=== PATIENT | female | born 1960 | race Caucasian/White ===

== ENCOUNTER → 2016-08-16 | Outpatient (CLI) | payer OTHER ==
--- NOTE | ~2016-08-16 | SLE ---
[facility] [address] [place] [address] POLYSOMNOGRAPHY STUDY Name: HERIBERTO RAMEY Room #: REG [facility].#: [id number] Admission: 08/16/16 Attend Phys: Naun Thrasher MD Discharge: Date of : 60 Report #: [id number] THIS REPORT FOR: //name// CC: [facility] physician/PCP Naun Thrasher MD HISTORY: A 56-year-old. Height 5 feet 4, weight 225 pounds. Usually goes to bed between 12 and 1 a.m., gets out of bed at 5:30-6:00 a.m. Positive history of snoring and daytime somnolence. No significant arrhythmia noted. BASELINE PORTION: Total sleep time 127 minutes. Sleep efficiency 88%. RESPIRATORY SUMMARY: Central apnea 0, mixed apnea 0, obstructive apnea 1, hypopnea 126. Apnea-hypopnea index of 60 events per sleep hour. Non-REM 57, REM AHI 67 events per sleep hour. Supine AHI 70, left lateral 49 events per sleep hour. Periodic limb movement with arousal index 5.7 events per sleep hour. Low oxygen saturation 86%, spending 1% of recording time less than 90%. CPAP TITRATION: Titrated at 5, 6, 7, 8 and 9 cm water pressure. At 9 cm water pressure, the patient was seen for 128 minutes of which 118 minutes was in REM sleep. 3 hypopneas, apnea-hypopnea index of 1.4 events per sleep hour, low sat of 91%. The patient was seen in supine REM sleep. IMPRESSION: 1. Obstructive sleep, apnea/hypopnea, G47.33. 2. Periodic limb movement with arousal index of 5.7 events per sleep hour, which reduces to 3 events per sleep hour during the titration. 3. No significant arrhythmia. SUGGESTIONS: 1. In addition to specific therapy, the patient should be cautioned regarding driving or operating dangerous machinery unless fully alert. The patient should be counseled on attempting to achieve ideal body weight. TSH if indicated. 2. Oral appliance or appropriate surgery may be considered with appropriate followup. 3. The patient should be cautioned regarding the use of respiratory depressants. 4. The usual sleep apnea suggestions recommended. 5. A CPAP setting of 9 cm water pressure may be considered during our study. A ResMed AirFit N10 standard mask was used with heated humidity. An auto titrating CPAP may also be considered 6-12 cm water pressure. 6. The patient had leg cramps during study and further discussion regarding this is recommended. [facility] [address] [place] [address] POLYSOMNOGRAPHY STUDY Name: HERIBERTO RAMEY [id number] Admission: 08/16/16 Attend Phys: Naun Thrasher MD Discharge: Date of : 60 Report #: [id number] If signs and symptoms not improved with therapy, further evaluation recommended. Please do not hesitate to contact me if I may be of further assistance. <ELECTRONICALLY SIGNED> By: Randal Turner MD 08/18/16 1813 [id number] Randal Turner MD /nt
== END ==
LOC: SLEEPLAB 19:11
DX: G47.33 Obstructive sleep apnea (adult) (pediatric) (principal)